=== PATIENT | female | born 1945 | race Caucasian/White ===

== ENCOUNTER → 2020-01-13 17:00 | Outpatient (CLI) | payer MEDICARE, SELFPAY ==
--- NOTE | ~2020-01-13 | MM_ITS ---
EXAMINATION: MM screening [facility] BI w franky HISTORY: Screening mammogram TECHNIQUE: Craniocaudal and mediolateral oblique 3-D tomosynthesis images were obtained and synthetic 2-D images were generated. CAD analysis was submitted and interpreted. COMPARISON: 12/18/2013, 05/09/2012, 03/07/2012 BREAST PARENCHYMAL COMPOSITION: There are scattered areas of fibroglandular density. FINDINGS: There is no evidence of suspicious mass, calcification, or architectural distortion to sugg est malignancy in either breast. There has been no suspicious interval change. IMPRESSION: 1. No mammographic evidence of malignancy. 2. Recommend routine screening mammography in one year. BI-RADS Category 1: Negative Reviewed, dictated and finalized at location A.
== END ==
PROVIDERS: PCP Family Medicine Adolescent Medicine; Visit Provider Physician Assistant
DX: Z12.31 Encounter for screening mammogram for malignant neoplasm of breast (principal)
CPT/HCPCS: 77063; 77067

== ENCOUNTER 2020-03-12 07:10 | Emergency (ER) | payer MEDICARE, SELFPAY ==
[2020-03-12] VITALS (13 sets, daily range): BP systolic 158–214; BP diastolic 56–94; PULSE 70–85; RESP 11–18; TEMP 36.1; O2SAT 97–100
--- NOTE | ~2020-03-12 | CT_ITS ---
EXAMINATION: CTA brain carotid EXAM DATE: 03/12/2020 09:01 INDICATION: Dizziness was, unsteady gait TECHNIQUE: Noncontrast head CT. Spiral CTA of the carotid arteries was performed with intravenous i njection 100 cc of Omnipaque 350. Axial, coronal, sagittal reformatted images reviewed. Additional r eformatted images created on dedicated 3-D workstation. NASCET comparable standard used to assess th e degree of arterial stenosis. Spiral CT angiogram cerebral arteries performed with the same intrave nous injection of contrast. Source images of the brain CTA transferred to dedicated workstation for 3 -D rotational image creation. Coronal, sagittal maximum intensity pixel images also reviewed. The d ose-length product (DLP) for this examination was 1762.94 mGy-cm. The exposure was tailored accordi ng to patient size, and iterative reconstruction (ASIR) was used as additional dose reduction techniq ue. Correlation is made to head CT from 04/27/2017. FINDINGS: There is no carotid or vertebral basilar arterial dissection or fibromuscular dysplasia. T here is 50% stenosis of the left carotid clinoid segment. There is a 2.5 mm distal left ICA aneurysm versus infundibulum of occluded posterior communicating artery from arterial sclerosis. 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 Scattered arterial sclerotic disease with short segment stenoses of the distal aspec t left M1 segment, bilateral P1 and P2 segments. There is symmetric cerebral artery arborization. The sagittal, transverse and sigmoid sinuses enhance normally, no venous sinus thrombosis. Internal cere bral veins also enhance normally. There is mild microangiopathy and cerebral atrophy. There is no acute intraparenchymal hemorrhage. N o evidence of intraparenchymal brain mass lesion. No evidence of acute infarction. There is no mass effect or midline shift. There is no obstructive hydrocephalus suspected. There are no extra-axial c ollections. There are no calvarial acute fractures. Bilateral cataract surgery. IMPRESSION: 1. Bilateral carotid bulb 0% stenosis. 2. Scattered [place] and cerebral artery arterial sclerosis without evidence of acute throm bus. 3. Left distal ICA 2.5 mm aneurysm versus infundibulum of occluded P-comm. 4. Mild atrophy and microangiopathy. Reviewed, dictated and finalized at location A. MANAGER IMPRESSION: 1. Bilateral carotid bulb 0% stenosis. 2. Scattered [place] and cerebral artery arterial sclerosis without e vidence of acute thrombus. 3. Left distal ICA 2.5 mm aneurysm versus infundibulum of occluded P-comm. 4. Mild atrophy and microangiopathy.
--- NOTE | 2020-03-12 07:23 | ECG_ITS ---
Measurements Intervals [place] Rate: 76 P: 65 MT: 158 QRS: -1 QRSD: 78 T: 46 QT: 393 QTc: 442 Interpretive Statements SINUS RHYTHM LOW QRS VOLTAGE IN PRECORDIAL LEADS BASELINE ARTIFACT- I, II, III, AVR, AVL, AVF, V1, V5-V6 BORDERLINE ECG Electronically Signed On 03-12-2020 11:14:03 [employer] by Sixto Yates D.O.
[2020-03-12 08:00] LABS: Basophils Percent Auto 0.4 % (0.2-1.2); Eosinophils Absolute Auto 0.1 K/mm3 (0-0.3); Eosinophils Percent Auto 1.2 % (0-4.4); Hematocrit 41.1 % (37.0-47.0); Hemoglobin 12.5 g/dL (12.0-15.0); Immature Granulocyte Absolute 0.03 K/mm3 (0.00-0.031); Immature Granulocyte Percent A 0.4 % (0-0.5); Lymphocytes Absolute Auto 0.89 K/mm3 (0.9-3.2); Mean Corpuscular HGB Conc 30.4 g/dl (32-36); Mean Corpuscular Hemoglobin 24.2 pg (26-34); Mean Corpuscular Volume 79.7 fl (80-100); Mean Platelet Volume 11.2 fl (7.4-10.4); Monocytes Absolute Auto 0.6 K/mm3 (0.1-0.6); Monocytes Percent Auto 8.5 % (2.6-8.5); Neutrophils Absolute Auto 5.8 K/mm3 (1.3-6.7); Neutrophils Percent Auto 77.5 % (45.5-73.1); Platelet Count Result 290 k/mm3 (150-375); Red Blood Count 5.16 M/mm3 (4.2-5.4); Red Cell Distribution Width 14.3 % (11.5-14.5); White Blood Count 7.4 K/mm3 (4.5-10.0)
[2020-03-12 08:06] LABS: Add Urine Microscopic? YES; Appearance Urine Clear (Clear); Bilirubin Urine Negative (Negative); Blood Urine Negative (Negative); Color Urine Straw (Yellow); Glucose Urine UA 3+ mg/dL (Negative); Ketones Urine Trace mg/dL (Negative); Leukocyte Esterase Ur Trace LEU/UL (Negative); Mucus Urine Rare /lpf; Nitrate Urine Negative (Negative); Protein Urine Negative (Negative); Specific Grav Ur 1.023 (1.001-1.035); Squamous Epithelial Cell Urine Few /hpf (Few); Urobilinogen Urine Negative mg/dL (<2.0); WBC Urine 0-3 /hpf
[2020-03-12 08:15] LABS: Alanine Aminotransferase 26 U/L (4-35); Albumin Level 4.5 g/dL (3.5-5.1); Alkaline Phosphatase 70 U/L (38-126); Anion Gap 10 mmol/L (8-16); Aspartate Amino Transferase 47 U/L (14-36); Bilirubin,Total 0.7 mg/dL (0.2-1.3); Blood Urea Nitrogen 14 mg/dL (7-17); Calcium 9.6 mg/dL (8.4-10.2); Carbon Dioxide 25 mmol/L (22-30); Chloride 100 mmol/L (98-107); Estimated CRCL calculation 61 ml/min; Estimated Glomerular Filt Rate > 60; Glucose 188 mg/dL (65-105); Magnesium 1.9 mg/dL (1.6-2.3); Potassium 4.7 mmol/L (3.4-5.0); Sodium 135 mmol/L (137-145)
[2020-03-12 08:43] LABS: INR 1.1; Prothrombin Time 14.6 Seconds (11.1-14.7)
[2020-03-12 08:44] LABS: Partial Thromboplastin Time 24.9 SECONDS (22.3-36.8)
--- NOTE | 2020-03-12 09:04 | PC.NURSE ---
Pt up to bathroom, walking with a steady gait
--- NOTE | 2020-03-12 09:50 | ED.DIZZY ---
HPI - Dizziness General Chief Complaint: Dizziness Stated Complaint: dizziness, diarrhea Time Seen by Provider: 03/12/20 07:28 Source: patient Mode of arrival: ambulatory Limitations: no limitations History of Present Illness HPI Narrative: This patient is a 74 year old female with history of hypertension, DM who presents for evaluation of dizziness. She reports she has been having intermittent dizziness for 1 week. She states this seems to occur more frequently in the morning. She denies sensation of spinning. She states she just feels like she is unsteady when she walks. She was hold onto the wall on Sunday. She reports she has been doing fine . This morning she had dizziness again so she came to ER. She also reports having a dull headache and she also had diarrhea. She denies nausea, vomiting, fever, chills, chest pain or sob. Related Data Home Medications Medication Instructions Recorded Confirmed aspirin 81 mg PO DAILY 03/12/20 03/12/20 biotin 5,000 mcg PO DAILY 03/12/20 03/12/20 cholecalciferol (vitamin D3) 50 mcg PO DAILY 03/12/20 03/12/20 [Vitamin D3] empagliflozin-linagliptin tablet 03/12/20 [Glyxambi] glimepiride mg 03/12/20 hydroxychloroquine 03/12/20 lisinopril 03/12/20 metformin mg 03/12/20 03/12/20 Allergies Allergy/AdvReac Type Severity Reaction Status Date / Time Sulfa (Sulfonamide Allergy Unknown Rash Verified 03/12/20 07:25 Antibiotics) Review of Systems Review of Systems: All systems reviewed & are unremarkable except as noted in HPI and below Constitutional: Constitutional: Denies chills and Denies fever(s) ENT: Denies dizziness, Reports nasal congestion (at night) and Denies sore throat Cardiovascular: Cardiovascular: Denies chest pain Respiratory: Respiratory: Denies cough and Denies dyspnea Gastrointestinal: Gastrointestinal: Denies abdominal pain, Reports diarrhea, Denies nausea and Denies vomiting PMF Past Medical History Medical History (Updated 03/12/20 @ 16:52 by Laisha Calles MD) Hyperglycemia due to diabetes mellitus Hypertension Surgical History Surgical History (Updated 03/12/20 @ 16:53 by Laisha Calles MD) History of lumbar laminectomy History of tonsillectomy Social History Social History Smoking status: Never smoker Alcohol intake: never Gender identity (if verbalized by the patient): Female Exam Const: General: no acute distress and alert Orientation/consciousness: patient oriented x3 HENMT: Head: normocephalic and atraumatic Ears: TM's normal bilaterally Face and sinus: face symmetric Mouth: Yes Normal oral and palatal mucosa present, Yes lip normal, Yes oropharynx normal and Yes moist mucous membranes Eyes: Pupils: Equal, round and reactive pupils present EOM: EOMs intact bilaterally Other: no nystagmus Chest: Chest palpation & inspection: normal inspection of the chest Resp: Effort & Inspection: normal respiratory effort and no retractions Auscultation: clear to auscultation bilaterally Cardio: Rate: regular rate Rhythm: regular rhythm Heart sounds: no murmurs GI: GI Palp: Yes Soft to palpation, No Tenderness to palpation present (GI) and No Guarding due to palpation present (GI) Auscultation: normal bowel sounds Skin: Rashes: no rashes Neuro: General: patient oriented x3, moves all extremities, no meningeal signs, no focal motor deficits and CN's II-XI intact bilaterally Cranial nerves: Yes Nystagmus not present Speech: normal speech Gait exam (Neuro): Normal gait present Motor exam (neuro): 5/5 motor strength present throughout and No tremor noted Coordination: [id number]-me-[id number] test normal and [id number] test normal Psych: Mental Status: mental status grossly normal Affect: normal affect Course Consultations Consultation #1: I Discussed case with Dr. Licona who agrees to follow up with patient. He agrees with continuing meclizine and aspirin 81 mg. PAtient can call him with any othe
== END 2020-03-12 11:31 | disposition home or self-care (01) ==
PROVIDERS: Emergency Provider General Practice; PCP Family Medicine Adolescent Medicine
DX: R42 Dizziness and giddiness (principal); I10 Essential (primary) hypertension; E11.9 Type 2 diabetes mellitus without complications; R94.31 Abnormal electrocardiogram [ECG] [EKG]; I67.2 Cerebral atherosclerosis; R94.02 Abnormal brain scan
CPT/HCPCS: 36415; 70496; 70498; 80053; 81001; 83735; 85025; 85610; 85730; 93005; 99284; A4565; Q9967

== ENCOUNTER 2023-12-17 07:49 | Outpatient (CLI) | payer MEDICARE, SELFPAY | END 2023-12-17 07:50 | disposition home or self-care (01) | LOC: ANHAUDIO 07:51 | PROVIDERS: PCP Family Medicine Adolescent Medicine; Visit Provider Family Medicine Adolescent Medicine | DX: H91.90 Unspecified hearing loss, unspecified ear (principal) | CPT/HCPCS: 92557; 92567 ==